=== PATIENT | female | born 1965 | race Caucasian/White ===

== ENCOUNTER 2021-06-12 16:00 | Emergency (ER) | payer OTHER ==
[~2021-06-12] VITALS: Ht 162.6 cm; Wt 104.3 kg
[2021-06-12 16:57] LABS: HEMOGLOBIN 14.1 gm/dl (12.3-15.3); RED BLOOD COUNT 4.5 M/UL (4.00-5.10); WHITE BLOOD COUNT 4.8 K/UL (4.5-11.0)
[2021-06-12] MEDS ORDERED: ZOFRAN ODT 4 MG4 MG PO (18:54)
== END 2021-06-12 21:04 | disposition home or self-care (01) ==
LOC: ER1 16:00
PROVIDERS: Physician Assistant Medical
DX: Z23 Encounter for immunization (principal); U07.1 COVID-19; I10 Essential (primary) hypertension; Z88.0 Allergy status to penicillin; Z88.1 Allergy status to other antibiotic agents
CPT/HCPCS: 71045; 80053; 81001; 83605; 84484; 85025; 93005; 99285; J2405; J7040; M0243